=== PATIENT | male | born 2005 | race Two or more races ===

== ENCOUNTER 2025-02-21 20:56 | Emergency (ER) | payer OTHER ==
[~2025-02-21] VITALS: Ht 172.7 cm; Wt 70.0 kg
[2025-02-21 20:59] VITALS: BP 141/85; PULSE 59; RESP 20; TEMP 97.8; O2SAT 98
== END 2025-02-22 02:01 | disposition left against medical advice (07) ==
LOC: ER 20:56
DX: K92.2 Gastrointestinal hemorrhage, unspecified (principal); Z53.21 Procedure and treatment not carried out due to patient leaving prior to being seen by health care provider